=== PATIENT | male | born 1955 | race Caucasian/White ===

== ENCOUNTER 2018-02-11 09:01 | Inpatient (IN) | payer OTHER ==
[~2018-02-11] VITALS: Ht 180.3 cm; Wt 106.6 kg
--- NOTE | ~2018-02-11 | EEG ---
[facility] [place] [address] ELECTROENCEPHALOGRAM Name: LENORE LANDERS Room #: 448-P [facility] IN M.R.#: [id number] Admission: 02/11/18 Attend Phys: Leroy Thomas DO Discharge: 02/13/18 Date of : 53 Report #: [id number] THIS REPORT FOR: //name// CC: Leroy Thomas Hiren Deweykash DATE OF SERVICE: 02/12/2018 This patient is being evaluated for right-sided headache and left-sided weakness. His workup is unremarkable so far. Background activity in this patient's EEG is about 11 Hz and 40 microvolt. This is a symmetrical activity. The patient became drowsy that is associated with bilateral slowing and vertex sharp waves. Photic stimulation was unremarkable. Throughout the record, no active epileptiform activity was noticed. IMPRESSION: This patient's EEG is unremarkable. Specifically, no slowing was noticed on the left side. Thank you very much for this referral. <ELECTRONICALLY SIGNED> By: Chon Nation MD 02/24/18 1906 [id number] 09 Chon Nation MD /nt
--- NOTE | ~2018-02-11 | HC ---
[facility] [place] [address] CONSULTATION Name: LENORE LANDERS Room #: 448-P [facility] IN ..#: [id number] Admission: 02/11/18 Attend Phys: Leroy Thomas DO Discharge: 02/13/18 Date of : 53 Report #: [id number] THIS REPORT FOR: //name// CC: Leroy Thomas Hiren Forest DATE OF SERVICE: 02/11/2018 HISTORY OF PRESENT ILLNESS: This is a 62-year-old male patient who was seen by me for 3 days' history of right-sided headache with what he described as left-sided subjective weakness. The weakness on examination is not very prominent, but he indicates that he can feel it. It came spontaneously about 3 days ago. It does not fluctuate much. He does not know any aggravating or relieving factors for that. Headache is involving the whole right head. He had some blurry vision, which has become better. REVIEW OF SYSTEMS: Indicate that he had similar symptoms in 2013. He was driving and he called 911. He was taken to [facility] and they asked him to be on Plavix, but he could not afford it and never went on Plavix. He had a cardiac test and they put him on statin and he is on a full dose of aspirin. He is not complaining of any visual disturbances and is not complaining of in fact any cardiac, respiratory, GI, , musculoskeletal, constitutional, dermatological, hematological, psychiatric, throat, allergic or endocrine symptom associated with present symptomatology. PAST MEDICAL HISTORY: Positive for similar episode in 2013, but that time, he did not have any headache. FAMILY HISTORY: Negative for early age stroke. SOCIAL HISTORY: He drinks two alcoholic drinks every day and he has done it for a long time. PHYSICAL EXAMINATION: NEUROLOGIC: The patient's examination indicates he is alert, responsive. His speech, concentration, fund of knowledge and memory are at his baseline. Cranial nerve examination 2-12 is unremarkable. On objective examination, his strength looks preserved. He indicates he has difficulty with the position sense, but he is able to get it right. His reflexes are symmetrical. He has no carotid bruit. I could not look at the fundus. There is no evidence of atrial fibrillation. There is no respiratory difficulty. There is no rhonchi on either side. HEENT: He is a well-built individual who does not have any dysmorphic features of eyes, ears and face. NECK: He has no thyroid mass. EXTREMITIES: His pulses are palpable. He has no edema, cyanosis or jaundice. [address] [address] CONSULTATION Name: LENORE LANDERS Room #: [facility]..#: [id number] Admission: 02/11/18 Attend Phys: Leroy Thomas DO Discharge: 02/13/18 Date of : 53 Report #: [id number] VITAL SIGNS: His blood pressure is 149/79, respiration is 20, pulse is 78 and temperature is 99.9. LABORATORY DATA: He did have an MRI of the brain and MRI of the head. It does not demonstrate any acute changes. It does demonstrate some component of hydrocephalus. IMPRESSION: This patient's symptoms were suggestive of a stroke, but no stroke has been found. 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 Some infection is possible, but is considered less likely. He does have some hydrocephalus, but that is an incidental finding and does not appear to be showing any symptoms related to that. RECOMMENDATIONS: 1. Echocardiogram with bubble study to look for patent foramen ovale. 2. Blood workup. 3. We may have to change him to Plavix from aspirin. 4. I will get an EEG done in this patient. 5. We need to decide whether there is any reason to do an LP in this patient. If his headaches continue, then we may have to do it. He does have some chronic changes in the brain and that also may be an indication to do an LP, but most of the time they are because of deep white matter ischemic changes. I discussed all of it with the patient in great detail. He understood it and he wants to follow this plan. <ELECTRONICALLY SIGNED> By: Chon Nation MD 02/24/18 1355 1745 [id number] Chon Nation MD /nt
--- NOTE | ~2018-02-11 | 2DMMODE ---
[facility] [address] [place] [address] 2 D/M-MODE ECHOCARDIOGRAM Name: LENORE LANDERS Room #: 448-P [facility] IN ..#: [id number] Admission: 02/11/18 Attend Phys: Leroy Thomas, Discharge: Date of : 53 Date of Service: 02/12/18 1302 Report #: [id number] THIS REPORT FOR: //name// APPROVED REPORT Study performed: 02/12/2018 10:21:03 EXAM: Comprehensive 2D, Doppler, and color-flow Echocardiogram Patient Location: Bedside Room #: [facility] Status: on-call BSA: 2.26 HR: 71 bpm BP: 168/85 mmHg Rhythm: NSR Other Information Study Quality: Adequate Risk Factors: Cardiac Risk Factors: Hyperlipidemia, HTN Indications CAD Echo Enhancing Agent Indication: Rule out Shunt Agent(s) / Amount(s) Used: Agitated Saline 7 cc 2D Dimensions LVEF(%): 60.77 (>50%) IVSd: 10.91 (7-11mm) LVOT Diam: 21.00 (18-24mm) LVDd: 53.31 mm PWd: 10.42 (7-11mm) Ascending Ao: 37.10 (22-36mm) LVDs: 35.83 (25-40mm) Aortic Root: 33.88 mm LV Single Plane 4CH: 55.39 % LV Single Plane 2CH: 56.35 % [place]'s LVEF: 55.87 % Biplane EF: 54.3 % Volumes Left Atrial Volume (Systole) Single Plane 4CH: 42.08 mL Single Plane 2CH: 34.70 mL LA ESV Index: 19.00 mL/m2 [facility] [place] [address] 2 D/M-MODE ECHOCARDIOGRAM Name: LENORE LANDERS Room #: 448-P [facility] IN ..#: [id number] Admission: 02/11/18 Attend Phys: Leroy Thomas, Discharge: Date of : 53 Date of Service: 02/12/18 1302 Report #: [id number] Aortic Valve AoV Peak Kyle.: 1.52 m/s AO Peak Gr.: 9.24 mmHg LVOT Max P.13 mmHg LVOT Max V: 1.13 m/s WILLIAM Vmax: 2.62 cm2 Mitral Valve E/A Ratio: 0.6 MV Decel. Time: 206.41 ms MV E Max Kyle.: 0.64 m/s MV A Kyle.: 1.04 m/s MV PHT: 59.86 ms IVRT: 106.11 ms TDI E/Lateral E': 9.14 E/Medial E': 9.14 Medial E' Kyle.: 0.07 m/s Lateral E' Kyle.: 0.07 m/s Pulmonary Valve PV Peak Kyle.: 1.06 m/s PV Peak Gr.: 4.46 mmHg Pulmonary Vein P Vein S: 0.56 m/s P Vein A: 0.25 m/s P Vein D: 0.43 m/s P Vein A Dur.: 143.0 msec P Vein S/D Ratio: 1.30 Tricuspid Valve RAP Estimate: 7.00 mmHg Left Ventricle The left ventricle is normal size. There is normal LV segmental wall motion. There is normal left ventricular wall thickness. Left ventricular systolic function is normal. The left ventricular ejection fraction is within the normal range. LVEF is 55-60%. Grade I - abnormal relaxation pattern. Right Ventricle The right ventricle is normal size. The right ventricular systolic function is normal. Atria The left atrium size is normal. The right atrium size is normal. Aortic Valve [facility] [address] [place] [address] 2 D/M-MODE ECHOCARDIOGRAM Name: LENORE LANDERS Room #: 448-P [facility] IN .R.#: [id number] Admission: 02/11/18 Attend Phys: Leroy Thomas, Discharge: Date of : 53 Date of Service: 02/12/18 1302 Report #: [id number] The aortic valve is normal in structure. No aortic regurgitation is present. There is no aortic valvular stenosis. Mitral Valve The mitral valve is normal in structure. There is no mitral valve regurgitation noted. No evidence of mitral valve stenosis. Tricuspid Valve The tricuspid valve is normal in structure. There is no tricuspid valve regurgitation noted. Pulmonic Valve The pulmonary valve is normal in structure. There is no pulmonic valvular regurgitation. Great Vessels The aortic root is normal in size. IVC is normal in size and collapses with >50% inspiration Pericardium There is no pericardial effusion. <Conclusion> The left ventricle is normal size. LVEF is 55-60%. Grade I - abnormal relaxation pattern. The right ventricle is normal size. The left atrium size is normal. The aortic valve is normal in structure. There is no mitral valve regurgitation noted. There is no tricuspid valve regurgitation noted. The aortic root is normal in size. There is no pericardial effusion. <ELECTRONICALLY SIGNED> By: Andrés Alvarez MD, FACC 02/12/18 1302 1302 1302 Andrés Alvarez MD, FACC /INF
--- NOTE | ~2018-02-11 | EKG ---
[address] [place] [address] ELECTROCARDIOGRAM REPORT Name: LENORE LANDERS Room #: 448-P [facility] IN M.R.#: [id number] Admission: 02/11/18 Attend Phys: Leroy Thomas DO Discharge: Date of : 53 Report #: [id number] THIS REPORT FOR: //name// [facility] ED Test Date: 2018-02-11 Test Time: 09:20:27 Pat Name: LENORE LANDERS Department: Room: 448 Gender: M [employer] Consultant: evita : 1955 Requested By: Stanislav Hopkins Order Number: [id number] MD: Sher Lee Measurements Intervals [place] Rate: 92 P: 5 MS: 161 QRS: -24 QRSD: 86 T: 46 QT: 358 QTc: 443 Interpretive Statements Sinus rhythm Poor R wave progression Compared to ECG 06/09/2010 11:13:13 ST segment elevation is no longer present Electronically Signed On 02-13-2018 13:35:48 CDT by Sher Lee [email or web address] <ELECTRONICALLY SIGNED> By: Sher Lee MD, [facility] 02/13/18 1335 9 9 Sher Lee MD, [facility] /EPI
[~2018-02-11 09:01] MED LIST: ASPIRIN325 PO; CRESTOR OR; FISHOIL; LISINOPRIL10 MG PO; LOPRESSOR PO
[2018-02-11 09:02] VITALS: BP 156/75
[2018-02-11] MEDS ORDERED: LIPITOR10 MG PO (09:15)
[2018-02-11] MEDS ORDERED: LISINOPRIL5 MG PO (09:16)
[2018-02-11] MEDS ORDERED: PRILOSEC 20 MG20 MG PO (09:16)
[2018-02-11] MEDS ORDERED: GLUCOSAMINE HC500 MG PO (09:16)
[2018-02-11 09:26] LABS: ABSOLUTE NEUTROPHILS 6.9 thou/uL (1.4-8.2); BASOPHILS 0.6 % (0.0-2.0); EOSINOPHILS 0.2 % (0.0-3.0); HEMATOCRIT 44.8 % (42.0-52.0); HEMOGLOBIN 15.8 gm/dL (14.0-18.0); LYMPHOCYTES 10.9 % (24.0-44.0); MCH 31.7 pg (26.0-34.0); MCHC 35.3 g/dL (28.0-37.0); MCV 89.6 fL (80.0-100.0); MONOCYTES 8.5 % (1.0-8.0); PLATELET COUNT 113 thou/uL (150-400); POLYS 79.8 % (36.0-66.0); RDW 14.1 % (10.5-14.5); WBC 8.7 thou/uL (4.0-11.0)
[2018-02-11 09:45] LABS: ANION GAP 12 mmol/L (7-16); BUN 16 mg/dL (7-18); CALCIUM 9.4 mg/dL (8.5-10.1); CHLORIDE 100 mmol/L (98-107); CO2 24 mmol/L (21-32); CREATININE 1.2 mg/dL (0.7-1.3); GLUCOSE 130 mg/dL (74-106); POTASSIUM 3.6 mmol/L (3.5-5.1); SODIUM 136 mmol/L (136-145)
[2018-02-11 09:53] LABS: TROPONIN-I < 0.04 ng/mL (<0.06)
[2018-02-11 10:46] VITALS: BP 158/81
[2018-02-11 13:40] VITALS: BP 158/81
[2018-02-11 16:44] VITALS: BP 149/79
[2018-02-11 19:15] VITALS: BP 148/77
[2018-02-12 03:30] VITALS: BP 168/85
[2018-02-12 06:31] LABS: ABSOLUTE NEUTROPHILS 4.1 thou/uL (1.4-8.2); BASOPHILS 0.6 % (0.0-2.0); EOSINOPHILS 1.3 % (0.0-3.0); HEMATOCRIT 42.8 % (42.0-52.0); HEMOGLOBIN 15.1 gm/dL (14.0-18.0); LYMPHOCYTES 23.6 % (24.0-44.0); MCH 31.8 pg (26.0-34.0); MCHC 35.3 g/dL (28.0-37.0); MCV 89.9 fL (80.0-100.0); MONOCYTES 11.5 % (1.0-8.0); PLATELET COUNT 111 thou/uL (150-400); RBC 4.77 mil/uL (4.50-6.00); RDW 14.5 % (10.5-14.5); WBC 6.5 thou/uL (4.0-11.0)
[2018-02-12 06:45] LABS: CALCIUM 8.8 mg/dL (8.5-10.1); POTASSIUM 4.1 mmol/L (3.5-5.1)
[2018-02-12 06:49] LABS: CHOLESTEROL 133 mg/dL (<200); HDL CHOLESTEROL 44 mg/dL (>40); LDL CHOLESTEROL 64 mg/dL (<100); TRIGLYCERIDE 125 mg/dL (<150); VLDL 25 mg/dL (<40)
[2018-02-12 08:00] VITALS: BP 163/87
[2018-02-12] MEDS ORDERED: LISINOPRIL10 MG PO (08:15)
[2018-02-12 16:00] VITALS: BP 149/83
[2018-02-12 19:06] VITALS: BP 148/80
[2018-02-13 04:57] VITALS: BP 153/70
[2018-02-13 08:00] VITALS: BP 158/79
[2018-02-13 10:53] LABS: MCH 31.3 pg (26.0-34.0); MCHC 34.7 g/dL (28.0-37.0); MCV 90.2 fL (80.0-100.0); PLATELET COUNT 160 thou/uL (150-400); RBC 5.11 mil/uL (4.50-6.00); RDW 14.3 % (10.5-14.5); WBC 7.9 thou/uL (4.0-11.0)
[2018-02-13 11:03] LABS: CALCIUM 9.5 mg/dL (8.5-10.1); CREATININE 1.2 mg/dL (0.7-1.3); POTASSIUM 3.8 mmol/L (3.5-5.1)
[2018-02-13 11:59] LABS: ABSOLUTE NEUTROPHILS 5.5 thou/uL (1.4-8.2); ANISOCYTOSIS 1+; POLYCHROMASIA OCCASIONAL
[2018-02-13 13:52] VITALS: BP 158/79
== END 2018-02-13 15:05 | disposition home or self-care (01) | DRG 102 ==
LOC: ER 09:01 → EROBS 10:58 → 4S 10:58 → EROBS 13:00 → 4S 14:02
PROVIDERS: Family Medicine; Nurse Practitioner; Psychiatry & Neurology Neuromuscular Medicine
DX: G43.409 Hemiplegic migraine, not intractable, without status migrainosus (principal); G93.40 Encephalopathy, unspecified; G91.0 Communicating hydrocephalus; E78.5 Hyperlipidemia, unspecified; G72.9 Myopathy, unspecified; I10 Essential (primary) hypertension; Z98.52 Vasectomy status; Z86.73 Personal history of transient ischemic attack (TIA), and cerebral infarction without residual deficits; Z79.899 Other long term (current) drug therapy
CPT/HCPCS: 10100

== ENCOUNTER → 2018-12-16 | Day surgery (SDC) | payer OTHER ==
[~2018-12-16] VITALS: Ht 180.3 cm; Wt 104.3 kg
[~2018-12-16] MED LIST changes: +CENTRUM SILVER1 EAC2 PO; +DIOVAN320 MG PO; +FISH OIL 1,001000 M2 PO; +GLUCOSAMINE HC500 MG PO; +LIPITOR10 MG PO; +LISINOPRIL5 MG PO; +PRILOSEC 20 MG20 MG PO
[2018-12-16 12:53] LABS: BF RBC 570
[2018-12-16 12:54] LABS: BF NUCLEATED CELLS 5169
[2018-12-16 14:00] LABS: CLARITY CLOUDY; COLOR PINK; TOTAL VOLUME 12 mL
[2018-12-16 14:02] LABS: BF MACROPHAGE 15; BF NEUTROPHILS 81; SOURCE RLL LAVAGE
--- NOTE | 2018-12-20 11:08 | PATH ---
[facility] [address] [place] [address] PATHOLOGY RPT PROCEDURE Name: SAMPLE,LENORE FRANCO Room #: [facility]..#: [id number] Admission: 12/16/18 Date of : 53 Discharge: Report #: [id number] Path Case #: [id number] Note [facility] Accession Number: [id number] TESTS RESULT FLAG UNITS REF RANGE LAB Clinician Provided Cytology Information No. of containers..01 Other (Miscellaneous) Source: BAL RLL DIAGNOSIS: 02 BAL RLL NEGATIVE FOR MALIGNANT CELLS. REACTIVE BRONCHIAL CELLS ARE PRESENT. PULMONARY MACROPHAGES (DUST CELLS) ARE PRESENT. Signed out by: Magalie Purdy MD, Pathologist NPI- [id number] Performed by: Citlaly Simental, Bus And Rail Operator ([facility]) Gross description: 01 15 ML, PINK W RED SPEC, CLOUDY /LCS FLAG LEGEND: L-Low Normal,H-High Normal,LL-Alert Low,HH-Alert High <-Panic Low,>-Panic High,A-Abnormal,AA-Critical Abnormal Performed at: [address] [place] [address] Cedric Candelario MD, [address] [address] Magalie Purdy MD, Specimen Comment: A courtesy copy of this report has been sent to Specimen Comment: [phone]. Specimen Comment: Report sent to Specimen Comment: A duplicate report has been generated due to demographic updates. Performed at: [address], [place], [place] [id number] MD Cedric Candelario MD Phone: [phone]
--- NOTE | 2018-12-20 11:08 | PATH ---
[facility] [address] [place] [address] PATHOLOGY RPT PROCEDURE Name: SAMPLE,LENORE FRANCO Room #: REG [facility]..#: [id number] Admission: 12/16/18 Date of : 53 Discharge: Report #: [id number] Path Case #: [id number] Note [facility] Accession Number: [id number] TESTS RESULT FLAG UNITS REF RANGE LAB Clinician Provided Cytology Information No. of containers..01 Slide Source: 01 BRUSHING RLL DIAGNOSIS: 02 BRUSHING RLL NEGATIVE FOR MALIGNANT CELLS. REACTIVE BRONCHIAL CELLS ARE PRESENT. PULMONARY MACROPHAGES (DUST CELLS) ARE PRESENT. RED BLOOD CELLS ARE PRESENT. INTERPRETATION LIMITED BY MARKED AIR-DRYING ARTIFACT. Signed out by: 02 Magalie Purdy MD, Pathologist NPI- [id number] Performed by: 01 Citlaly Simental, Auto Customize Painter ([facility]) FLAG LEGEND: L-Low Normal,H-High Normal,LL-Alert Low,HH-Alert High <-Panic Low,>-Panic High,A-Abnormal,AA-Critical Abnormal Performed at: [address] [place] [address] Cedric Candelario MD, [address] [address] Magalie Purdy MD, Specimen Comment: A duplicate report has been generated due to demographic updates. Performed at: [address], [place], [place] [id number] MD Cedric Candelario MD Phone: [phone]
--- NOTE | 2018-12-20 12:06 | PATH ---
[facility] [address] [place] [address] PATHOLOGY RPT PROCEDURE Name: SAMPLE,LENORE FRANCO Room #: REG [facility]..#: [id number] Admission: 12/16/18 Date of : 53 Discharge: Report #: [id number] Path Case #: [id number] Note [facility] Accession Number: [id number] TESTS RESULT FLAG UNITS REF RANGE LAB Clinician Provided Cytology Information No. of containers..01 Other (Miscellaneous) Source: 01 BRUSH TIP RLL DIAGNOSIS: 02 BRUSH TIP RLL NEGATIVE FOR MALIGNANT CELLS. REACTIVE BRONCHIAL CELLS ARE PRESENT. PULMONARY MACROPHAGES (DUST CELLS) ARE PRESENT. Signed out by: 02 Magalie Purdy MD, Pathologist NPI- [id number] Performed by: 01 Citlaly Simental, Pump Press Operator ([employer]) FLAG LEGEND: L-Low Normal,H-High Normal,LL-Alert Low,HH-Alert High <-Panic Low,>-Panic High,A-Abnormal,AA-Critical Abnormal Performed at: [address] [place] [address] Cedric Candelario MD, [address] [address] Magalie Purdy MD, Specimen Comment: A courtesy copy of this report has been sent to Specimen Comment: [phone]. Specimen Comment: Report sent to Specimen Comment: A duplicate report has been generated due to demographic updates. Performed at: [address], [place], [place] [id number] MD Cedric Candelario MD Phone: [phone]
== END | disposition home or self-care (01) ==
LOC: EDSTATUS 06:16 → OR 07:12 → CATH 13:24
PROVIDERS: Pediatrics
DX: J98.4 Other disorders of lung (principal); I10 Essential (primary) hypertension; I25.10 Atherosclerotic heart disease of native coronary artery without angina pectoris; I25.2 Old myocardial infarction; E78.5 Hyperlipidemia, unspecified; Z95.5 Presence of coronary angioplasty implant and graft; K21.9 Gastro-esophageal reflux disease without esophagitis; Z98.52 Vasectomy status; Z90.49 Acquired absence of other specified parts of digestive tract; Z98.890 Other specified postprocedural states; Z87.19 Personal history of other diseases of the digestive system; Z79.82 Long term (current) use of aspirin; Z79.899 Other long term (current) drug therapy; Z86.73 Personal history of transient ischemic attack (TIA), and cerebral infarction without residual deficits
CPT/HCPCS: 62110; 62900; 70005

== ENCOUNTER → 2020-01-10 | Outpatient (CLI) | payer BC | LOC: SJCVCIMAG 07:26 | DX: I36.1 Nonrheumatic tricuspid (valve) insufficiency (principal); I25.10 Atherosclerotic heart disease of native coronary artery without angina pectoris; E78.00 Pure hypercholesterolemia, unspecified; I10 Essential (primary) hypertension ==

== ENCOUNTER → 2022-01-06 | Outpatient (CLI) | payer OTHER | LOC: SJCVC 10:45 | PROVIDERS: ATTEND Internal Medicine Cardiovascular Disease | DX: I25.10 Atherosclerotic heart disease of native coronary artery without angina pectoris (principal); I10 Essential (primary) hypertension; E78.00 Pure hypercholesterolemia, unspecified; K42.9 Umbilical hernia without obstruction or gangrene; K43.9 Ventral hernia without obstruction or gangrene; Z86.73 Personal history of transient ischemic attack (TIA), and cerebral infarction without residual deficits; Z72.89 Other problems related to lifestyle; Z79.82 Long term (current) use of aspirin; Z79.899 Other long term (current) drug therapy; Z82.49 Family history of ischemic heart disease and other diseases of the circulatory system ==